=== PATIENT | female | born 1980 ===

== ENCOUNTER 2018-12-23 11:12 | Outpatient (CLI) | payer OTHER ==
[2018-12-23 11:41] LABS: APPEARANCE,URINE CLEAR (CLEAR); COLOR,URINE YELLOW (YELLOW); OCCULT BLOOD,URINE NEGATIVE (NEGATIVE); PH URINE 5.5 (5.0 - 8.0); UROBILINOGEN URINE 0.2 Eu (0.2-1.0)
[2018-12-23 12:03] LABS: BASOPHILS % 0.7 % (0.0-1.5); NEUTROPHILS # 6.7 # k/uL (1.4-7.7)
[2018-12-23 12:46] LABS: eGFR (Non-African) > 60
== END 2018-12-23 11:14 ==
LOC: LAB 11:12
PROVIDERS: ATTEND Physician Assistant
DX: L30.9 Dermatitis, unspecified (principal)
CPT/HCPCS: 36415; 80053; 81002; 85025; 85651; 86038; 86140